=== PATIENT | male | born 1975 | race Caucasian/White ===

== ENCOUNTER → 2019-09-24 09:12 | Outpatient (CLI) | payer BC ==
[2015-04-15 07:01] VITALS: BMI 36.3
[~2019-09-24 09:12] MED LIST: BYSTOLIC10 MG PO; LIPITOR40 MG PO; PRILOSEC20 MG PO
== END | disposition home or self-care (01) ==
LOC: D.LAB 09:12
PROVIDERS: ATTEND Family Medicine
DX: Z11.59 Encounter for screening for other viral diseases (principal)